=== PATIENT | female | born 1970 | race Caucasian/White ===

== ENCOUNTER 2024-02-28 09:06 | Outpatient (AMB) | payer OTHER, SELFPAY ==
--- NOTE | 2024-02-28 09:15 | A.SPINEOV_ITS ---
Intake Visit Reasons: Back pain Intake Note: Ms. Johnson is here today c/o back pain. [employer] Required: No Assessment & Plan Assessment & Plan (1) Lumbar degenerative disc disease: Code(s): M51.36 - Other intervertebral disc degeneration, lumbar region Category: Medical Plan This is a self-referred 53-year-old female who presents to the office today for evaluation of issue with her right sacral area. She has a history of a Finch jazzy placed when she was a teenager [facility]. She had otherwise been doing okay until about 3 years ago she started to notice a pain along the medial right buttock region over the sacrococcygeal area. She will have occasional back pain with it, but primarily it is the sacral discomfort that is affecting her quality of life. She does not have shooting pain down her legs. The symptoms are aggravated with standing walking but also can be present laying down at night. She was working at [employer] and standing on concrete floors was getting very difficult for her. She underwent physical therapy but it only seemed to make things worse. She did a prednisone taper twice and that would help with the symptoms ultimately would come back. She comes in today with MRI showing degenerative disc disease, primarily at L4-5. She comes in today self- referred. She had been seeing the orthopedics department at [facility], but 1 of the providers apparently left the practice so she is not sure if she has any further follow-up with them. She does have a referral to physiatry office coming up sometime in March. She takes ibuprofen just as needed, not daily. PMH: She is diabetic, [facility] records here A1c is usually around 7, high cholesterol, vertigo she denies any other major medical problems. She had a Finch jazzy placement she was a teenager. Social hx: She does not smoke, denies any alcoholism Medications: Trulicity, ibuprofen, rosuvastatin, omeprazole, meclizine, sertraline Allergies: Penicillin Physical exam: She has tenderness over the right sacral area just on the medial buttock. It does not localize to her lower back. She has full strength, negative JOHN testing, negative straight leg raise testing, intact reflexes Imaging review: Lumbar MRI done at [facility] shows degenerative disc disease primarily at L4-5 with right L4 foraminal stenosis. No significant central canal stenosis. Impression: This is a 53-year-old female with a history of Finch jazzy placement she was a teenager, presents now with what she describes as back pain but when she actually localizes it for me it is more likely over the right SI joint region maybe down into the medial buttock region. It does not actually localized to her low back. She has no radicular symptoms. She did try some physical therapy but discontinued it because it was not being helpful. She takes ibuprofen occasionally but not every day. She has been out of work because the standing does seem to aggravate the symptoms. Her MRI does show a degenerative disc at L4-5 with right L4 foraminal stenosis. Unfortunately right now she does not have any symptoms that would localize to this problem area. Specifically in order to have a surgical indication we would need to have back pain and some kind of radicular symptom that travels down the leg. I think she is better suited for the physiatry modalities right now. I did educate her on the signs and symptoms of radiculopathy and progressive back pain getting worse. If she develops any of these things she will give us a call. Thank you for allowing us to care for your patient. The total time spent with this visit with this patient was 45 minutes reviewing history, physical exam, lumbar imaging review, and implementation of treatment plan or further diagnostic testing Freddie Moran MD,PhD [facility] Coding Level of Care Code New Pt Level 4 (88631) Diagnoses Lumbar degenerative disc disease M51.36
== END 2024-02-28 10:33 | disposition home or self-care (01) ==
PROVIDERS: Visit Provider Physician Assistant
DX: M51.36 Other intervertebral disc degeneration, lumbar region (principal)
CPT/HCPCS: 99204

== ENCOUNTER → 2024-02-28 09:06 | Outpatient (BNVA) | payer OTHER, SELFPAY | PROVIDERS: Visit Provider Neurological Surgery | DX: M51.36 Other intervertebral disc degeneration, lumbar region (principal) | CPT/HCPCS: 99202 ==